=== PATIENT | male | born 1995 | race Caucasian/White ===

== ENCOUNTER 2017-07-30 20:57 | Emergency (ER) | payer SELFPAY ==
[2017-07-30 21:33] VITALS: BP 138/57; PULSE 60; TEMP 97.8; BMI 27.4
--- NOTE | 2017-07-30 23:45 | PDOC ---
History of Present Illness - General Chief Complaint: Injury Stated Complaint: NOSE INJURY Time Seen by Provider: 07/30/17 23:15 History Source: Patient Exam Limitations: No Limitations - History of Present Illness Initial Comments: 07/31/17 00:01 22-year-old male with no medical history presents to the emergency department complaining of pain to his nose. Patient states while playing basketball this evening, another player accidentally punched his nose with his forearm. Patient denies LOC, nausea/vomiting, dizziness, lightheadedness, headaches, difficulty smelling, visual disturbance, neck pains, back pains, extremity numbness or tingling sensation. Pain to his nose is described as 3/10 dull nonradiating intermittent discomfort. The pain is alleviated at rest and exacerbated on touch. Occurred: reports: just prior to arrival Past History - Past Medical History Allergies/Adverse Reactions: Allergies Allergy/AdvReac Type Severity Reaction Status Date / Time No Known Allergies Allergy Verified 07/30/17 21:32 Home Medications: Ambulatory Orders NK [No Known Home Medication] 07/30/17 - Suicide/Smoking/Psychosocial Hx Smoking History: Never smoked Have you smoked in the past 12 months: No Information on smoking cessation initiated: No Hx Alcohol Use: No Drug/Substance Use Hx: No Review of Systems - Review of Systems Able to Perform ROS?: Yes Comments:: 07/31/17 00:02 CONSTITUTIONAL: Absent: fever, chills, diaphoresis, generalized weakness, malaise, loss of appetite HEENT: Absent: rhinorrhea, nasal congestion, throat pain, throat swelling, difficulty swallowing, mouth swelling, ear pain, eye pain, visual Changes MUSCULOSKELETAL: Absent: myalgia, arthralgia, joint swelling SKIN: Absent: rash, itching, pallor Is the patient limited [place]ian proficient: No *Physical Exam - Vital Signs Last Vital Signs Temp Pulse Resp BP Pulse Ox 97.8 F 60 18 138/57 99 07/30/17 21:30 07/30/17 21:30 07/30/17 21:30 07/30/17 21:30 07/30/17 21:30 - Physical Exam Comments: 07/31/17 00:02 GENERAL: Well developed, well nourished. Awake and alert. No acute distress. HEENT: Neg septal hematoma +Slight pain on palp to mid nasal region Normocephalic, atraumatic. PERRLA, EOMI. No conjunctival pallor. Sclera are non- icteric. Moist mucous membranes. Oropharynx is clear. NECK: Supple. Full ROM. No JVD. Carotid pulses 2+ and symmetric, without bruits. No thyromegaly. No lymphadenopathy. MUSCULOSKELETAL Normal range of motion at all joints. No bony deformities or tenderness. No CVA tenderness. EXTREMITIES: No cyanosis. No clubbing. No edema. No calf tenderness. SKIN: Warm and dry. Normal capillary refill. No rashes. No jaundice. ED Treatment Course - RADIOLOGY Radiograph Interpretation: 07/31/17 00:45 xray nasal bone 2v neg *DC/Admit/Observation/Transfer Diagnosis at time of Disposition: Nasal contusion Qualifiers: Encounter type: initial encounter Qualified Code(s): S00.33XA - Contusion of nose, initial encounter - Discharge Dispostion Disposition: HOME Condition at time of disposition: Stable Admit: No - Referrals Referrals: Pillo Viveros MD [Staff Physician] - - Patient Instructions Printed Discharge Instructions: DI for Contusion Additional Instructions: Ice; 20 mins on alternating with 20 mins off for 48 hours while awake. Rest Return to the ER for severe/persistent/worsening symptoms, extremity numbness/ tingling sensation. _+++OR SWEELING BETWEEN THE NOSE/SEPTUM
== END 2017-07-31 01:05 | disposition home or self-care (01) ==
LOC: JER 20:57 → JERFT 20:57 → JER 07-31 01:05
DX: S00.33XA Contusion of nose, initial encounter (principal); W50.0XXA Accidental hit or strike by another person, initial encounter; Y93.67 Activity, basketball; Y92.310 Basketball court as the place of occurrence of the external cause
CPT/HCPCS: 70160-TC; 99281-25